=== PATIENT | female | born 1945 | race Caucasian/White ===

== ENCOUNTER → 2016-10-17 | Outpatient (CLI) | payer MEDICARE, OTHER | LOC: OD 10:25 | PROVIDERS: ATTEND Physician Assistant | DX: R06.02 Shortness of breath (principal) | CPT/HCPCS: 71020 ==

== ENCOUNTER → 2016-11-25 | Outpatient (CLI) | payer MEDICARE ==
--- NOTE | 2016-11-25 17:05 | XCELERA REPORT ---
[address] [address] Lower Extremity Venous Evaluation Name: ALANNA WALKER Age: 71 yrs Gender: Female : 1945 Patient Status: Outpatient Patient Location: Study Date: 11/25/2016 02:36 PM Procedure: Color flow and duplex imaging bilaterally of the veins of the lower extremities as well as the Common Femoral veins. Reason For Study: BLE SWELLING Ordering Physician: MICHELLE SIMPSON Performed By: Connie Bang Right Sided Venous Evaluation Normal vessel filling wall to wall, compression and augmentation as well as Colour flow down to the infrageniculate veins. Left Sided Venous Evaluation Normal vessel filling wall to wall, compression and augmentation as well as Colour flow down to the infrageniculate veins. Critical Findings Called in to Dr Simpson's office at abut 1700 hours. Interpretation Summary No duplex evidence of DVT or obstruction in the bilateral lower extremities. : MICHELEL SIMPSON > Facundo Melissa
== END ==
LOC: SP 14:10
PROVIDERS: ATTEND Family Medicine
DX: I72.8 Aneurysm of other specified arteries (principal); R60.0 Localized edema
CPT/HCPCS: 93880; 93970

== ENCOUNTER → 2017-02-13 | Outpatient (CLI) | payer MEDICARE ==
--- NOTE | 2017-02-13 10:53 | RADIOLOGY REPORT (SQ) ---
EXAM DESCRIPTION: VENOUS UNILATERAL LOWER COMPLETED DATE/TIME: 02/13/2017 10:37 am REASON FOR STUDY: LLE EDEMA R60.9 EDEMA, UNSPECIFIED COMPARISON: None. TECHNIQUE: Dynamic and static staton scale and color images acquired of the left leg venous system. Se lected spectral images acquired with additional compression and augmentation maneuvers. The contralat eral common femoral vein and saphenofemoral junction were also imaged. Images stored on PACS. LIMITATIONS: None. FINDINGS: LEFT COMMON FEMORAL: Normal phasicity, compression and augmentation. No visualized echogenic material on g ray scale. No defects on color images. FEMORAL: Normal compression and augmentation. No visualized echogenic material on staton scale. No defe cts on color images. POPLITEAL: Normal compression, augmentation. No visualized echogenic material on staton scale. No defec ts on color images. CALF VESSELS: Normal compression, augmentation. No visualized echogenic material on staton scale. No de fects on color images. GSV and SSV: Normal compression, augmentation. No visualized echogenic material on staton scale. No def ects on color images. ANY DEEP VENOUS INSUFFICIENCY: Yes, there is reflux on Valsalva at the left greater saphenous vein be low the knee ANY EVIDENCE OF POPLITEAL CYST: No. OTHER: No other significant finding. RIGHT COMMON FEMORAL VEIN AND SAPHENOFEMORAL JUNCTION: Normal phasicity, compression and augmentation. No visualized echogenic material on staton scale. No de fects on color images. IMPRESSION: NO EVIDENCE OF DVT OR SVT IN THE LEFT LEG. Reflux on Valsalva in the left greater saphenous vein below the knee TECHNICAL DOCUMENTATION: JOB ID: [id number] SPO- All Rights Reserved
== END ==
LOC: SP 09:44
PROVIDERS: ATTEND Physician Assistant
DX: R60.9 Edema, unspecified (principal)
CPT/HCPCS: 93971